=== PATIENT | male | born 1960 | race Caucasian/White ===

== ENCOUNTER → 2016-07-10 | Day surgery (SDC) | payer BC ==
[~2016-07-10] MED LIST: BUPIVACAINE/EPINEPHRINE 0.25% PF 10 ML VIAL ONE; KETOROLAC TROMETHAMINE 30 MG/ML (IVP) VIAL IV PUSH ONE; LACTATED RINGER'S 1000 ML INJ 1,000 ML ONE; MIDAZOLAM HCL 2 MG/2 ML VIAL ONE; ONDANSETRON HCL 4 MG/2 ML VIAL IV PUSH ONE; PROPOFOL 200 MG/20 ML AMP IV ONE; ceFAZolin 2 GM PREMIX 50 ML ONE
--- NOTE | 2016-07-10 11:10 | TN ---
cc: JAKE CRONIN M.D. DATE OF SURGERY: 07/10/2016 PREOPERATIVE DIAGNOSIS Recurrent x2 right inguinal hernia. POSTOPERATIVE DIAGNOSIS Recurrent x2 right inguinal hernia, medial recurrence. PROCEDURE Laparoscopic transabdominal repair of recurrent right inguinal hernia with [place]-Regis dual mesh. SURGEON Dr. Jake Cronin. ACTUARIAL CONSULTANT SOTO Leon ANESTHESIA General. INDICATIONS This is a very pleasant 55-year-old gentleman who presented initially with a history of bilateral inguinal hernia repair in the past, first in 1979 in [facility], the last three in [place]. Each side has mesh open and via laparoscope. He has noted a tender reducible bulge in the right groin over the last year. He is very active and exercises. He is interested in pursuing operative repair. Plans were made for transabdominal approach. INTRAOPERATIVE FINDINGS No apparent recurrent hernia on transabdominal view, upon releasing the peritoneum from the preperitoneal space, a medial direct recurrence was identified and repaired. ESTIMATED BLOOD LOSS Less than 5 mL. The surgical procedure was assisted by my nurse practitioner. My PRECISION LAYOUT WORKER's presence was necessary throughout the case for providing excellent visualization of the area of concern. My nurse practitioner assisted me through the duration of the procedure and her skill set was medically necessary to complete the procedure. During the surgical case the surgical lead was working at the back table providing appropriate instrumentation and the nurse practitioner was directly assisting me. DESCRIPTION OF PROCEDURE IN DETAIL The patient was identified as Gerson Regan, taken to the operating room and placed in the supine position. Sequential compression devices were placed on bilateral lower extremities. Following induction of adequate general endotracheal anesthesia a timeout procedure was performed. Following completion of time-out procedure, the patient's abdomen was prepped and draped in usual sterile fashion with Betadine. The previous thickened scar in the inferior aspect of the umbilicus was excised with an elliptical incision after instillation of local anesthetic. Dissection continued posteriorly in the infraumbilical position. The base of the umbilicus was retracted anteriorly. Infraumbilical midline fascia was incised with scalpel and entry in the peritoneal cavity was facilitated with a hemostat. The applied medical balloon trocar was placed in the peritoneal cavity, its balloon inflated with C02 insufflation until a level of 15 mmHg ensued. The patient was placed in a Trendelenburg position. Two inferior left sided 5 mm trocars were placed in the peritoneal cavity under direct laparoscopic view after incision of skin with a scalpel. Attention was turned to evaluation of the groins bilaterally. Evidence of prior surgery was identified and you could see mesh through the peritoneum on both sides. There was no mesh exposed and there was no obvious hernia recurrence. The peritoneum was then taken down from the median umbilical ligament superiorly using scissor and electrocautery and blunt dissection and scar tissue was encountered when the mesh was come to. This was medial to the inferior epigastric vessels lateral and peritoneum was then taken down in a similar fashion looking for possible lateral recurrence and none was seen. Attention was then returned medially and with further blunt dissection of the peritoneum using electrocautery on only small bleeding points a medial recurrence was identified. Fatty tissue from the preperitoneal space was protruding through the hernia defect medial to the mesh. Photographs were taken, this was withdrawn. The hernia pseudo sac was tacked to the anterior Cilve's ligament which was cleared medially and laterally deflecting the bladder inferiorly and laterally to the patient's left. A measuring device ruler was cut and placed in the preperitoneal space to measure the space so that an appropriate size piece of mesh could be cut and a 9 x 9 cm oval piece of Os[place]ola-Regis dual mesh was cut. It was marked with a pin where Clive's ligament would be, creating overlap inferiorly as well as getting broad coverage both medially and laterally and superiorly. The mesh was rolled, placed in the peritoneal cavity, unrolled and the first tack was placed at the lateral border of Clive's ligament, just medial to the femoral vessels. The mesh was then spread out and provided excellent coverage of the defect with at least 4 cm on either side. The mesh was tacked in position using pro-tack device. Tacks were placed along the anterior border of Clive's ligament. The superior border of pubic tubercle and the symphysis pubis and then in a double crown technique medially and laterally and then along the superior border of the mesh. Photograph was taken of the completed repair. The peritoneum was then placed back over the top of the mesh to keep it covered and tacks were used to perform this. Care was taken to avoid tack placement inferolaterally to avoid cutaneous nerve injury and no tacks were placed lateral to the inferior epigastric vessels. Local anesthetic was then injected generously around the areas of dissection and the preperitoneal space and trocars removed under direct visualization. There was no evidence of bleeding from trocar sites. The peritoneal space was desufflated actively through the infraumbilical port which was then removed. The infraumbilical fascial incision was closed with interrupted inverted 2-0 Vicryl sutures. Skin incisions were approximated with 4-0 Monocryl subcuticular sutures. Dressings were applied with Mastisol, half-inch brown Steri-Strips. The patient tolerated the procedure without apparent complication. Sponge, needle and instrument counts were correct at the end of the case. MD RAINE Gann/EB /9:24 AM /10:34 AM
== END | disposition home or self-care (01) ==
LOC: ESDC 06:28
PROVIDERS: ATTEND Surgery Trauma Surgery
DX: K40.91 Unilateral inguinal hernia, without obstruction or gangrene, recurrent (principal)
CPT/HCPCS: 00840; 49651; J0690; J1885; J2250; J2405; J3010; J7120; C1781